=== PATIENT | female | born 1965 | race Hispanic/Latino ===

== ENCOUNTER → 2019-10-25 | Outpatient (CLI) | payer MEDICAID | END | disposition home or self-care (01) | LOC: RAH 10:24 | PROVIDERS: ATTEND Family Medicine | DX: K76.0 Fatty (change of) liver, not elsewhere classified (principal); K52.9 Noninfective gastroenteritis and colitis, unspecified; K31.89 Other diseases of stomach and duodenum | CPT/HCPCS: 76700; 78264; A9541 ==

== ENCOUNTER 2020-07-05 11:44 | Emergency (ER) | payer MEDICAID ==
[2020-07-05] MEDS ORDERED: KETOROLAC TROMETHAMINE 60 MG/2 ML VIAL ONE (12:20)
[2020-07-05] MEDS ORDERED: CYCLOBENZAPRINE HCL 10 MG TABLET ONE (12:20)
== END 2020-07-05 13:43 | disposition home or self-care (01) ==
LOC: EDH 11:44
DX: S20.211A Contusion of right front wall of thorax, initial encounter (principal); I10 Essential (primary) hypertension; E11.9 Type 2 diabetes mellitus without complications; E78.00 Pure hypercholesterolemia, unspecified; F41.9 Anxiety disorder, unspecified; F32.9 Major depressive disorder, single episode, unspecified; W08.XXXA Fall from other furniture, initial encounter; Y93.89 Activity, other specified; Y92.098 Other place in other non-institutional residence as the place of occurrence of the external cause; Y99.8 Other external cause status
CPT/HCPCS: 71101; 96372; 99283; J1885

== ENCOUNTER 2021-06-11 10:40 | Emergency (ER) | payer MEDICAID ==
[~2021-06-11] VITALS: Ht 170.2 cm; Wt 102.5 kg
[2021-06-11 10:45] VITALS: BP 123/74
[2021-06-11] MEDS ORDERED: MORPHINE 4 MG SYG IM ONE (13:00)
== END 2021-06-11 13:49 | disposition home or self-care (01) ==
LOC: EDH 10:40
DX: M53.3 Sacrococcygeal disorders, not elsewhere classified (principal); R07.89 Other chest pain; I10 Essential (primary) hypertension; E11.9 Type 2 diabetes mellitus without complications; W18.39XA Other fall on same level, initial encounter; Y93.89 Activity, other specified; Y92.89 Other specified places as the place of occurrence of the external cause; Y99.8 Other external cause status
CPT/HCPCS: 71045; 72220; 96372; 99284; J2270

== ENCOUNTER → 2021-06-18 | Outpatient (CLI) | payer MEDICAID | END | disposition home or self-care (01) | LOC: RAH 12:52 | PROVIDERS: ATTEND Internal Medicine Cardiovascular Disease | DX: I08.0 Rheumatic disorders of both mitral and aortic valves (principal); I11.9 Hypertensive heart disease without heart failure; E11.9 Type 2 diabetes mellitus without complications; E78.5 Hyperlipidemia, unspecified; E66.9 Obesity, unspecified | CPT/HCPCS: 93306 ==

== ENCOUNTER 2022-02-11 09:02 | Emergency (ER) | payer MEDICAID ==
[~2022-02-11] VITALS: Ht 162.6 cm; Wt 105.2 kg
[2022-02-11] MEDS ORDERED: IPRATROPIUM/ALBUTEROL SULFATE 3 ML SOLUTION IH ONE (09:30)
[2022-02-11] MEDS ORDERED: DEXAMETHASONE SOD PHOSPHATE 4 MG/ML 1ML VIAL IM STA (10:30)
[2022-02-11] MEDS ORDERED: FLUT16H NASAL (10:38)
[2022-02-11] MEDS ORDERED: AMOX500C2 PO (10:38)
[2022-02-11] MEDS ORDERED: LORA10TA7 PO (10:38)
[2022-02-11 11:02] VITALS: BP 124/75
== END 2022-02-11 11:00 | disposition home or self-care (01) ==
LOC: EDH 09:02
DX: J06.9 Acute upper respiratory infection, unspecified (principal); J32.9 Chronic sinusitis, unspecified; E11.9 Type 2 diabetes mellitus without complications; E78.00 Pure hypercholesterolemia, unspecified; I10 Essential (primary) hypertension; Z20.822 Contact with and (suspected) exposure to COVID-19; Z98.890 Other specified postprocedural states
CPT/HCPCS: 99284; 71045; 87635; 87804 ×2; 96372; 94640; J1100; C9803

== ENCOUNTER 2022-08-30 12:59 | Emergency (ER) | payer MEDICAID, OTHER ==
[~2022-08-30] VITALS: Ht 167.6 cm; Wt 102.5 kg
[~2022-08-30 12:59] MED LIST: ACET-66 PO; AMOX500C2 PO; FLUT16H NASAL; LORA10TA7 PO
[2022-08-30 13:50] LABS: BASOPHILS % (AUTO) 0.3 % (0.0-5.0); EOSINOPHILS % (AUTO) 1.4 % (0.0-8.0); HEMATOCRIT 40.6 % (36-48); LYMPHOCYTES % (AUTO) 27.8 % (21.0-51.0); MEAN CORPUSCULAR HEMOGLOBIN 25.3 pg (27.0-33.0); MEAN CORPUSCULAR VOLUME 81.5 fL (79-99); MONOCYTES % (AUTO) 4.8 % (3.0-13.0); NEUTROPHILS % (AUTO) 65.1 % (40.0-77.0); PLATELET COUNT (AUTO) 325 K/uL (130-400); RED BLOOD CELL COUNT(AUTO) 4.98 MIL/uL (4.00-5.50); RED CELL DISTRIBUTION WIDTH 15.4 % (11.0-15.5); WHITE BLOOD COUNT (AUTO) 11.7 K/uL (4.8-10.8)
[2022-08-30 13:56] LABS: APPEARANCE,URINE CLEAR (CLEAR); BILIRUBIN,URINE NEGATIVE (NEGATIVE); COLOR,URINE LIGHT-YELLOW (YELLOW); GLUCOSE, URINE (UA) >=1000 mg/dL (NEGATIVE); KETONES,URINE NEGATIVE (NEGATIVE); LEUKOCYTE ESTERASE ,URINE 75 Leu/uL (NEGATIVE); NITRATE,URINE NEGATIVE (NEGATIVE); OCCULT BLOOD,URINE NEGATIVE (NEGATIVE); PH,URINE 6.5 (5.0-8.0); PROTEIN,URINE NEGATIVE (NEGATIVE); UROBILINOGEN,URINE 0.2 mg/dL (0.2-1.0)
[2022-08-30 13:57] LABS: RBC,URINE 0-1 /HPF (0-1); SQUAMOUS EPITHELIAL CELL,UR RARE /HPF (0-2)
[2022-08-30 14:00] LABS: CREATININE 1.2 mg/dL (0.5-1.5); POTASSIUM 3.9 mmol/L (3.5-5.1)
[2022-08-30 14:04] LABS: ALBUMIN 3.5 g/dL (3.5-5.0); TOTAL PROTEIN, SERUM 8.5 g/dL (6.0-8.3)
[2022-08-30] MEDS ORDERED: ONDANSETRON ODT 4MG TAB SL SCH (16:00)
[2022-08-30] MEDS ORDERED: ONDA4TAB10 PO (16:00)
[2022-08-30] MEDS ORDERED: MORPHINE 4 MG SYG IM SCH (16:00)
[2022-08-30] MEDS ORDERED: NAPR-1192 PO (16:00)
[2022-08-30] MEDS ORDERED: MORPHINE 2 MG SYG ONE (16:12)
[2022-08-30 16:41] VITALS: BP 132/74
== END 2022-08-30 16:40 | disposition home or self-care (01) ==
LOC: EDH 12:59
DX: M54.9 Dorsalgia, unspecified (principal); R31.9 Hematuria, unspecified; I10 Essential (primary) hypertension; E78.00 Pure hypercholesterolemia, unspecified; Z87.442 Personal history of urinary calculi; Z79.899 Other long term (current) drug therapy; Z98.890 Other specified postprocedural states
CPT/HCPCS: 99285; 74176; 80053; 83690; 85025; 87088; 81001; 36415; 96372; J2270

== ENCOUNTER 2023-06-04 12:42 | Emergency (ER) | payer MEDICAID ==
[~2023-06-04] VITALS: Ht 162.6 cm; Wt 89.8 kg
[~2023-06-04 12:42] MED LIST changes: +NAPR-1192 PO; +ONDA4TAB10 PO
[2023-06-04 13:26] LABS: BASOPHILS # (AUTO) 0.06 K/uL (0.00-0.20); BASOPHILS % (AUTO) 0.4 % (0.0-5.0); EOSINOPHILS # (AUTO) 0.13 K/uL (0.00-0.70); EOSINOPHILS % (AUTO) 0.9 % (0.0-8.0); HEMATOCRIT 43.4 % (36-48); IMMATURE GRANULOCYTE ABSOLUTE 0.05 K/uL (0-1); LYMPHOCYTES # (AUTO) 2.7 K/uL (1.0-4.8); LYMPHOCYTES % (AUTO) 18.5 % (21.0-51.0); MEAN CORPUSCULAR HGB CONC 32.7 g/dL (32.0-36.0); MEAN CORPUSCULAR VOLUME 79.3 fL (79-99); MONOCYTES # (AUTO) 0.6 K/uL (0.1-1.0); MONOCYTES % (AUTO) 4.4 % (3.0-13.0); NEUTROPHILS # (AUTO) 10.8 K/uL (1.8-7.7); NEUTROPHILS % (AUTO) 75.5 % (40.0-77.0); PLATELET COUNT (AUTO) 299 K/uL (130-400); RED BLOOD CELL COUNT(AUTO) 5.47 MIL/uL (4.00-5.50); RED CELL DISTRIBUTION WIDTH 13.7 % (11.0-15.5); WHITE BLOOD COUNT (AUTO) 14.3 K/uL (4.8-10.8)
[2023-06-04 13:42] LABS: ALBUMIN 3.6 g/dL (3.5-5.0); BILIRUBIN,TOTAL 0.9 mg/dL (0.2-1.0); CREATININE 1.1 mg/dL (0.5-1.0); POTASSIUM 3.5 mmol/L (3.5-5.1); TOTAL PROTEIN, SERUM 8.7 g/dL (6.0-8.3)
[2023-06-04] MEDS: ONDANSETRON 4MG INJ IV ONE (14:42)
[2023-06-04 15:55] LABS: APPEARANCE,URINE CLOUDY (CLEAR); BILIRUBIN,URINE NEGATIVE (NEGATIVE); COLOR,URINE YELLOW (YELLOW); GLUCOSE, URINE (UA) 50 mg/dL (NEGATIVE); KETONES,URINE 10 mg/dL (NEGATIVE); LEUKOCYTE ESTERASE ,URINE 500 Leu/uL (NEGATIVE); NITRATE,URINE NEGATIVE (NEGATIVE); OCCULT BLOOD,URINE NEGATIVE (NEGATIVE); PH,URINE 5.5 (5.0-8.0); PROTEIN,URINE 70 mg/dL (NEGATIVE); UROBILINOGEN,URINE 0.2 mg/dL (0.2-1.0)
[2023-06-04 15:57] LABS: ADD UA MICROSCOPIC YES
[2023-06-04 16:00] LABS: MUCUS,URINE RARE LPF (None Seen); OTHER CASTS, URINE 1 /LPF (None Seen); SQUAMOUS EPITHELIAL CELL,UR MANY /HPF (0-2); UNCLASSIFIED CRYSTAL 3 /HPF (None Seen); WBC,URINE 51-100 /HPF (0-1)
[2023-06-04] MEDS ORDERED: DICY20TA2 PO (16:08)
[2023-06-04 16:11] VITALS: BP 138/76; PULSE 81; RESP 18; O2SAT 99
== END 2023-06-04 16:39 | disposition home or self-care (01) ==
LOC: EDH 12:42
DX: K31.84 Gastroparesis (principal); I10 Essential (primary) hypertension; E78.00 Pure hypercholesterolemia, unspecified; Z87.442 Personal history of urinary calculi; Z79.899 Other long term (current) drug therapy; Z98.890 Other specified postprocedural states
CPT/HCPCS: 99285; 74176; 96374; 84484; 80053; 83690; 85025; 87088; 81001; 36415; 93005; J2405

== ENCOUNTER 2023-08-05 08:29 | Inpatient (IN) | payer MEDICAID ==
[2023-08-05] VITALS (21 sets, daily range): BP systolic 105–149; BP diastolic 51–80; PULSE 65–92; RESP 7–32; O2SAT 97–99
[~2023-08-05] VITALS: Ht 162.6 cm; Wt 91.4 kg
[~2023-08-05 08:29] MED LIST changes: +DICY20TA2 PO; +METO5TAB87 PO; +NITR100C4 PO; +ONDA-243 PO; -ONDA4TAB10 PO
[2023-08-05 09:57] LABS: BASOPHILS # (AUTO) 0.03 K/uL (0.00-0.20); BASOPHILS % (AUTO) 0.2 % (0.0-5.0); HEMATOCRIT 38.1 % (36-48); IMMATURE GRANULOCYTE ABSOLUTE 0.07 K/uL (0-1); LYMPHOCYTES # (AUTO) 1.3 K/uL (1.0-4.8); LYMPHOCYTES % (AUTO) 7.5 % (21.0-51.0); MEAN CORPUSCULAR HEMOGLOBIN 26.7 pg (27.0-33.0); MEAN CORPUSCULAR HGB CONC 33.6 g/dL (32.0-36.0); MEAN CORPUSCULAR VOLUME 79.5 fL (79-99); MONOCYTES # (AUTO) 0.3 K/uL (0.1-1.0); MONOCYTES % (AUTO) 1.7 % (3.0-13.0); NEUTROPHILS # (AUTO) 15.8 K/uL (1.8-7.7); NEUTROPHILS % (AUTO) 90.2 % (40.0-77.0); PLATELET COUNT (AUTO) 281 K/uL (130-400); RED BLOOD CELL COUNT(AUTO) 4.79 MIL/uL (4.00-5.50); RED CELL DISTRIBUTION WIDTH 14.1 % (11.0-15.5); WHITE BLOOD COUNT (AUTO) 17.5 K/uL (4.8-10.8)
[2023-08-05 10:20] LABS: ALBUMIN 3.5 g/dL (3.5-5.0); BILIRUBIN,TOTAL 1.4 mg/dL (0.2-1.0); CREATININE 1.1 mg/dL (0.5-1.0); MAGNESIUM 1.4 mg/dL (1.80-2.40); TOTAL PROTEIN, SERUM 8.4 g/dL (6.0-8.3)
[2023-08-05] MEDS: 0.9%NACL 1000ML 1,000 ML IV ONE ×2 (10:50→11:37)
[2023-08-05] MEDS: INSULIN HUMULIN R 100 UNIT/ML 3ML IV ONE (11:15)
[2023-08-05] MEDS: ONDANSETRON 4MG INJ IVP ONE (11:15)
[2023-08-05] MEDS: PANTOPRAZOLE 40 MG/VIAL IVP ONE (11:36)
[2023-08-05] MEDS: MAGNESIUM 2GM PREMIX 50ML 50 ML IV ONE (11:36)
[2023-08-05 11:53] LABS: ABG OXYGEN SATURATION 96.9 % (95.0-99.0); HCO3,VENOUS BLOOD GAS 15.8 (21.0-28.0); PCO2,VENOUS BLOOD GAS 28 (32-45); PH,VENOUS BLOOD GAS 7.365 (7.350-7.450); PO2,VENOUS BLOOD GAS 91.3 mmHg (35.0-45.0); VENT MODE, BG RA (ROOM AIR)
[2023-08-05] MEDS: HYDROMORPHONE 0.5 MG SYG (0.5MG/0.5ML) IVP PRN (12:55)
[2023-08-05] MEDS ORDERED: IPRATROPIUM/ALBUTEROL SULFATE 3 ML SOLUTION IH PRN (13:00)
[2023-08-05] MEDS ORDERED: 0.9%NACL 1000ML 1,000 ML IV SCH (13:00)
[2023-08-05 13:09] LABS: INR 0.96 (0.85-1.15); PROTHROMBIN TIME 11.4 SEC (9.6-11.6)
[2023-08-05 13:10] LABS: CREATININE 1.1 mg/dL (0.5-1.0); POTASSIUM 3.6 mmol/L (3.5-5.1)
[2023-08-05 13:11] LABS: PARTIAL THROMBOPLASTIN TIME 30.8 SEC (26.3-35.5)
[2023-08-05 13:15] LABS: HEMOGLOBIN A1C 12.7 % (4.0-6.0)
[2023-08-05 13:22] LABS: PHOSPHORUS 3.1 mg/dL (2.5-4.9); THYROID STIMULATING HORMONE 1.79 uIU/mL (0.36-3.74)
[2023-08-05] MEDS: CEFTRIAXONE 1G VIAL IVPB SCH (14:06)
[2023-08-05] MEDS: POTASSIUM CHLORIDE 10MEQ/100ML 100 ML IV PRN (14:07)
[2023-08-05] MEDS: INSULIN REGULAR, HUMAN 3ML 100 UNIT in 0.9%NACL 100ML 100 ML IV SCH (15:06)
[2023-08-05 17:10] LABS: MAGNESIUM 1.8 mg/dL (1.80-2.40); POTASSIUM 3.1 mmol/L (3.5-5.1)
[2023-08-05] MEDS: D5W-1/2 NS/20MEQ KCL 1,000 ML IV SCH (18:26)
[2023-08-05] MEDS: MAGNESIUM 2GM PREMIX 50ML 50 ML IV SCH (20:50)
[2023-08-05 21:00] LABS: POTASSIUM 3.4 mmol/L (3.5-5.1)
[2023-08-05 23:14] LABS: SARS-CoV-2, RNA, NAAT NEGATIVE SARS CoV-2 (NEGATIVE)
[2023-08-05 23:18] LABS: INFLUENZA TYPE A Negative For Type A (NEGATIVE); INFLUENZA TYPE B Negative For Type B (NEGATIVE)
[2023-08-06] VITALS (14 sets, daily range): BP systolic 113–163; BP diastolic 58–102; PULSE 61–79; RESP 11–82; O2SAT 97–99
[2023-08-06 00:20] LABS: CREATININE 0.9 mg/dL (0.5-1.0); MAGNESIUM 2.3 mg/dL (1.80-2.40); POTASSIUM 3.5 mmol/L (3.5-5.1)
[2023-08-06] MEDS: LACTATED RINGERS 1000ML 1,000 ML IV SCH (01:43)
[2023-08-06] MEDS: INSULIN GLARGINE 100 UNITS/ML 10 ML VIAL SQ ONE (01:48)
[2023-08-06] MEDS: ACETAMINOPHEN 500 MG TABLET PO PRN (02:10)
[2023-08-06 05:16] LABS: BASOPHILS # (AUTO) 0.04 K/uL (0.00-0.20); BASOPHILS % (AUTO) 0.3 % (0.0-5.0); EOSINOPHILS # (AUTO) 0.39 K/uL (0.00-0.70); EOSINOPHILS % (AUTO) 3.2 % (0.0-8.0); HEMATOCRIT 34.2 % (36-48); IMMATURE GRANULOCYTE ABSOLUTE 0.06 K/uL (0-1); LYMPHOCYTES % (AUTO) 16.3 % (21.0-51.0); MEAN CORPUSCULAR HGB CONC 33.9 g/dL (32.0-36.0); MEAN CORPUSCULAR VOLUME 79.7 fL (79-99); MONOCYTES # (AUTO) 0.7 K/uL (0.1-1.0); MONOCYTES % (AUTO) 5.3 % (3.0-13.0); NEUTROPHILS # (AUTO) 9.2 K/uL (1.8-7.7); NEUTROPHILS % (AUTO) 74.4 % (40.0-77.0); PLATELET COUNT (AUTO) 236 K/uL (130-400); RED BLOOD CELL COUNT(AUTO) 4.29 MIL/uL (4.00-5.50); RED CELL DISTRIBUTION WIDTH 14.7 % (11.0-15.5); WHITE BLOOD COUNT (AUTO) 12.4 K/uL (4.8-10.8)
[2023-08-06] MEDS: KETOROLAC 15MG/ML VIAL (15MG/ML) IV PRN (05:18)
[2023-08-06] MEDS: ONDANSETRON 4MG INJ IVP PRN (05:42)
[2023-08-06 05:45] LABS: ALBUMIN 2.9 g/dL (3.5-5.0); BILIRUBIN,DIRECT 0.2 mg/dL (0.0-0.3); BILIRUBIN,TOTAL 0.8 mg/dL (0.2-1.0); CREATININE 0.9 mg/dL (0.5-1.0); MAGNESIUM 2.1 mg/dL (1.80-2.40); POTASSIUM 4.1 mmol/L (3.5-5.1)
[2023-08-06] MEDS: INSULIN GLARGINE 100 UNITS/ML 10 ML VIAL SQ SCH (06:13)
[2023-08-06] MEDS: INSULIN HUMULIN R 100 UNIT/ML 3ML SQ SCH ×2 (06:14→12:38)
[2023-08-06] MEDS: ALPRAZOLAM 1 MG TAB PO ONE (06:43)
[2023-08-06] MEDS: LORAZEPAM 2 MG/ML 1 ML VIAL ONE (07:18)
[2023-08-06] MEDS: LORAZEPAM 2 MG/ML 1 ML VIAL IVP ONE (07:19)
[2023-08-06 07:29] LABS: THYROID STIMULATING HORMONE 2.51 uIU/mL (0.36-3.74)
[2023-08-06] MEDS ORDERED: LORAZEPAM 2 MG/ML 1 ML VIAL IM ONE (07:30)
[2023-08-06] MEDS: LISINOPRIL 40 MG TABLET PO SCH (08:56)
[2023-08-06] MEDS: PANTOPRAZOLE 40 MG/VIAL IVP SCH (08:56)
[2023-08-06] MEDS: DICYCLOMINE HCL 20 MG TAB PO SCH (08:56)
[2023-08-06] MEDS: METOCLOPRAMIDE 5 MG TABLET PO SCH (08:56)
[2023-08-06] MEDS: ENOXAPARIN SODIUM 60 MG/0.6 ML SQ SCH (08:57)
[2023-08-06] MEDS ORDERED: POTASSIUM CHLORIDE 10% ELIXIR 20 MEQ/15 ML UDCUP PO PRN (10:00)
[2023-08-06] MEDS ORDERED: KCL 20 MEQ ERTAB PO PRN (10:00)
[2023-08-06] MEDS ORDERED: POTASSIUM CHLORIDE 20MEQ/100ML 100 ML IV PRN (10:00)
[2023-08-06] MEDS: HYDROXYZINE 25 MG TABLET PO PRN (20:10)
[2023-08-07] VITALS (11 sets, daily range): BP systolic 143–164; BP diastolic 73–85; PULSE 66–74; RESP 16–20; O2SAT 95–99
[2023-08-07 04:47] LABS: BASOPHILS # (AUTO) 0.05 K/uL (0.00-0.20); BASOPHILS % (AUTO) 0.4 % (0.0-5.0); EOSINOPHILS # (AUTO) 0.21 K/uL (0.00-0.70); EOSINOPHILS % (AUTO) 1.8 % (0.0-8.0); HEMATOCRIT 34.1 % (36-48); IMMATURE GRANULOCYTE ABSOLUTE 0.05 K/uL (0-1); LYMPHOCYTES # (AUTO) 2.2 K/uL (1.0-4.8); LYMPHOCYTES % (AUTO) 18.4 % (21.0-51.0); MEAN CORPUSCULAR HEMOGLOBIN 26.6 pg (27.0-33.0); MEAN CORPUSCULAR HGB CONC 33.4 g/dL (32.0-36.0); MEAN CORPUSCULAR VOLUME 79.7 fL (79-99); MONOCYTES # (AUTO) 0.7 K/uL (0.1-1.0); MONOCYTES % (AUTO) 5.6 % (3.0-13.0); NEUTROPHILS # (AUTO) 8.6 K/uL (1.8-7.7); NEUTROPHILS % (AUTO) 73.4 % (40.0-77.0); PLATELET COUNT (AUTO) 246 K/uL (130-400); RED BLOOD CELL COUNT(AUTO) 4.28 MIL/uL (4.00-5.50); RED CELL DISTRIBUTION WIDTH 14.3 % (11.0-15.5); WHITE BLOOD COUNT (AUTO) 11.7 K/uL (4.8-10.8)
[2023-08-07 05:07] LABS: CREATININE 0.8 mg/dL (0.5-1.0); MAGNESIUM 1.5 mg/dL (1.80-2.40); PHOSPHORUS 2.3 mg/dL (2.5-4.9); POTASSIUM 3.3 mmol/L (3.5-5.1)
[2023-08-07] MEDS: LEVOTHYROXINE 25 MCG TABLET PO SCH (06:40)
[2023-08-07] MEDS: DiphenhydrAMINE HCL 50 MG/ML VIAL IV ONE (10:10)
[2023-08-07] MEDS: HYDROXYZINE 25 MG TABLET PO SCH (13:12)
[2023-08-08 00:43] VITALS: BP 124/66; PULSE 62; RESP 18
[2023-08-08] MEDS: POTASSIUM CHLORIDE 20MEQ/100ML 100 ML IV PRN (02:25)
[2023-08-08] MEDS: DiphenhydrAMINE HCL 50 MG/ML VIAL IV PRN (02:32)
[2023-08-08 04:33] VITALS: BP 111/57; PULSE 57; RESP 18
[2023-08-08 06:13] LABS: BASOPHILS # (AUTO) 0.05 K/uL (0.00-0.20); BASOPHILS % (AUTO) 0.5 % (0.0-5.0); EOSINOPHILS # (AUTO) 0.41 K/uL (0.00-0.70); EOSINOPHILS % (AUTO) 3.7 % (0.0-8.0); HEMATOCRIT 34.7 % (36-48); IMMATURE GRANULOCYTE ABSOLUTE 0.04 K/uL (0-1); LYMPHOCYTES # (AUTO) 3.4 K/uL (1.0-4.8); LYMPHOCYTES % (AUTO) 30.4 % (21.0-51.0); MEAN CORPUSCULAR HEMOGLOBIN 27.1 pg (27.0-33.0); MEAN CORPUSCULAR HGB CONC 32.9 g/dL (32.0-36.0); MEAN CORPUSCULAR VOLUME 82.4 fL (79-99); MONOCYTES # (AUTO) 0.7 K/uL (0.1-1.0); MONOCYTES % (AUTO) 6.1 % (3.0-13.0); NEUTROPHILS # (AUTO) 6.5 K/uL (1.8-7.7); NEUTROPHILS % (AUTO) 58.9 % (40.0-77.0); PLATELET COUNT (AUTO) 225 K/uL (130-400); RED BLOOD CELL COUNT(AUTO) 4.21 MIL/uL (4.00-5.50); RED CELL DISTRIBUTION WIDTH 14.6 % (11.0-15.5); WHITE BLOOD COUNT (AUTO) 11.1 K/uL (4.8-10.8)
[2023-08-08 06:45] LABS: CREATININE 0.7 mg/dL (0.5-1.0)
[2023-08-08 08:00] VITALS: BP 119/66; PULSE 65; RESP 16; O2SAT 98
[2023-08-08] MEDS: MAGNESIUM OXIDE 400 MG TABLET PO SCH (08:13)
[2023-08-08 08:57] LABS: APPEARANCE,URINE CLEAR (CLEAR); BILIRUBIN,URINE NEGATIVE (NEGATIVE); COLOR,URINE LIGHT-YELLOW (YELLOW); GLUCOSE, URINE (UA) NEGATIVE (NEGATIVE); KETONES,URINE 10 mg/dL (NEGATIVE); LEUKOCYTE ESTERASE ,URINE 75 Leu/uL (NEGATIVE); NITRATE,URINE NEGATIVE (NEGATIVE); OCCULT BLOOD,URINE NEGATIVE (NEGATIVE); PH,URINE 6.5 (5.0-8.0); PROTEIN,URINE NEGATIVE (NEGATIVE); UROBILINOGEN,URINE 0.2 mg/dL (0.2-1.0)
[2023-08-08 08:59] LABS: ADD UA MICROSCOPIC YES
[2023-08-08 09:08] LABS: BACTERIA,URINE RARE /HPF (None Seen); MUCUS,URINE RARE LPF (None Seen); RBC,URINE 0-1 /HPF (0-1); SQUAMOUS EPITHELIAL CELL,UR RARE /HPF (0-2)
[2023-08-08] MEDS ORDERED: HYDR-3421 PO (11:33)
[2023-08-08] MEDS ORDERED: LISI40TA9 PO (11:33)
[2023-08-08] MEDS ORDERED: MAGN400T7 PO (11:33)
[2023-08-08 12:00] VITALS: BP 153/73; PULSE 74; RESP 20
== END 2023-08-08 14:30 | disposition home or self-care (01) | DRG 420 ==
LOC: EDH 08:29 → EDHIP 08:30 → 2BH 14:55 → 3CH 08-07 06:01
PROVIDERS: ADMIT Internal Medicine; ATTEND Internal Medicine
PROC: 05HY33Z Insertion of Infusion Device into Upper Vein, Percutaneous Approach (ICD-10-PCS; principal; 2023-08-05)
PROC: B543ZZA Ultrasonography of Right Jugular Veins, Guidance (ICD-10-PCS; 2023-08-05)
DX: E11.10 Type 2 diabetes mellitus with ketoacidosis without coma (principal); N17.9 Acute kidney failure, unspecified; G25.71 Drug induced akathisia; E03.9 Hypothyroidism, unspecified; Z20.822 Contact with and (suspected) exposure to COVID-19; E78.5 Hyperlipidemia, unspecified; F41.9 Anxiety disorder, unspecified; E11.43 Type 2 diabetes mellitus with diabetic autonomic (poly)neuropathy; K31.84 Gastroparesis; E86.0 Dehydration; E83.42 Hypomagnesemia; I10 Essential (primary) hypertension; M17.0 Bilateral primary osteoarthritis of knee; E11.40 Type 2 diabetes mellitus with diabetic neuropathy, unspecified; E66.9 Obesity, unspecified; R29.6 Repeated falls; Z68.37 Body mass index [BMI] 37.0-37.9, adult; Z79.84 Long term (current) use of oral hypoglycemic drugs; Z87.442 Personal history of urinary calculi; Z87.440 Personal history of urinary (tract) infections; Z79.891 Long term (current) use of opiate analgesic; Z79.899 Other long term (current) drug therapy; Z90.49 Acquired absence of other specified parts of digestive tract; Z91.119 Patient's noncompliance with dietary regimen due to unspecified reason; Z68.34 Body mass index [BMI] 34.0-34.9, adult
CPT/HCPCS: 36415; 36600; 71045; 74176; 80048; 80053; 80061; 80076; 81001; 82010; 82803; 82948; 83036; 83605; 83690; 83735; 84100; 84145; 84439; 84443; 84481; 84484; 85025; 85610; 85651; 85730; 86140; 87040; 87077; 87088; 87186; 87635; 87804; 93005; 94664; 96365; 96375; C9113; G0378; J0696; J1170; J1200; J1650; J1815; J1885; J2060; J2405; J3475; J3480; J7030

== ENCOUNTER → 2023-11-22 | Outpatient (CLI) | payer MEDICAID ==
[~2023-11-22] MED LIST changes: -AMOX500C2 PO; +HYDR-3421 PO; +LISI40TA9 PO; +MAGN400T7 PO; -METO5TAB87 PO; -NAPR-1192 PO; -NITR100C4 PO
[2023-11-22 10:09] LABS: ALBUMIN 3.4 g/dL (3.5-5.0); BILIRUBIN,TOTAL 0.8 mg/dL (0.2-1.0); CREATININE 1.2 mg/dL (0.5-1.0); POTASSIUM 4.2 mmol/L (3.5-5.1); TOTAL PROTEIN, SERUM 8.1 g/dL (6.0-8.3)
== END | disposition home or self-care (01) ==
LOC: LAB 09:09
PROVIDERS: ATTEND Internal Medicine Cardiovascular Disease
DX: R94.31 Abnormal electrocardiogram [ECG] [EKG] (principal); R07.9 Chest pain, unspecified
CPT/HCPCS: 36415; 80053

== ENCOUNTER 2024-06-25 10:30 | Emergency (ER) | payer MEDICAID ==
[~2024-06-25] VITALS: Ht 165.1 cm; Wt 106.6 kg
--- NOTE | 2024-06-25 11:35 | ERN ---
ED Note History of Present Illness Stated Complaint: CHEST PAIN Chief Complaint: Chest Pain Time Seen by MD: 10:33 Time Seen by Midlevel: 10:38 Dictation: 58-year-old female with a history of hypertension, diabetes and cholesterol coming in with complaints of chest pain, nausea and diarrhea for two days. Patient also states her blood sugar this morning was at 598. Patient states she has not been taking her Tresiba for the last seven days due to not have an insurance. Denies having any emesis episode. Denies any fever, cough congestion headache. Allergies: Coded Allergies: No Known Allergies (Unverified Allergy, Unknown, 07/05/20) Home Meds Active Scripts Magnesium Oxide (Mag-Ox) 400 Mg Tab, 400 MG PO DAILY, #5 TAB Prov:TIM DAVENPORT MD 08/08/23 Lisinopril (Lisinopril) 40 Mg Tablet, 40 MG PO DAILY, #30 TAB 0 Refills Prov:TIM DAVENPORT MD 08/08/23 Hydroxyzine HCl (Hydroxyzine HCl) 25 Mg Tablet, 25 MG PO TID, #90 TAB Prov:TIM DAVENPORT MD 08/08/23 Ondansetron (Ondansetron Odt) 4 Mg Tab.rapdis, 4 MG PO Q6HPRN PRN for nausea, #16 TAB 0 Refills Prov:PABLO MICHAEL MD 06/04/23 Dicyclomine HCl (Bentyl) 20 Mg Tab, 20 MG PO QID for abdominal pain, #30 TAB 0 Refills Prov:PABLO MICHAEL MD 06/04/23 Acetaminophen (Tylenol) 500 Mg Tab, 500 MG PO Q4PRN PRN for PAIN, #15 TAB Prov:NOHEMI VALDEZ 06/17/22 Loratadine (Loratadine) 10 Mg Tablet, 10 MG PO DAILY for 30 Days, #30 TAB Prov:DAV BALDERAS MD 02/11/22 Fluticasone Propionate (Flonase Nasal [place]) 50 Mcg/[place], 50 MCG NASAL BID for 14 Days, #30 SPRAY Prov:DAV BALDERAS MD 02/11/22 Past Medical History Past Medical History: Diabetes-Type II, Hypertension, Renal Disese Additional Past Medical Hx: BRONCHITIS Surgical History: Other Surgical History Other: KIDNEY STONE REMOVAL AND STENT PLACEMENT Family History: Negative Social History: Negative, Lives with family History: Not Applicable Review of System Dictation Constitutional: Negative for fever,chills, and weight loss Eyes: Negative for injury, pain,redness, and discharge ENT: Negative for injury,pain or swelling Cardiovascular: Complaining of chest pain, no palpitations, and no edema Respiratory: Negative for shortness of breath, cough, and wheezing, Abdomen/GI: Negative for abdominal pain, nausea, vomiting, positive for diarrhea , nonbloody Back: Negative for injury and pain : Negative for injury, bleeding and discharge MS/Extremity: Negative for injury and deformity Skin: Negative for rash, and discoloration Neuro: Negative for headache, weakness, numbness, tingling, and seizure Psych: Negative for suicide ideation, homicidal ideation, and hallucinations Review of Systems: was completed Initial Vital Sign VS Vital Signs Date Time Temp Pulse Resp B/P (MAP) Pulse Ox O2 Delivery O2 Flow Rate FiO2 06/25/24 10:32 98.1 89 16 178/77 99 Room Air Physical Exam Dictation General: awake, alert, NAD Head/Face: Normocephalic, atraumatic Eyes: PERRL, EOMI, vision at baseline ENT: oral cavity clear, TMs clear, no signs of infection Neck: Trachea midline, supple, no nuchal rigidity Cardiovascular: RRR, normal S1/S2, No MRGs, no JVD Respiratory: CTAB, no respiratory distress, No rales or wheezes Abdomen: Soft, non-tender, non-distended, normal bowel sounds, no guarding or rebound. Skin: Warm, dry, normal turgor, no rash MS/Extremity: Pulses equal, no cyanosis, neurovascular intact, FROM Neuro: COAx4, GCS 15, strength 5/5, CN 2-12 intact, normal cerebellar exam, normal gait, Psych: Normal behavior, mood, and affect normal Results (Laboratory/Radiology) Laboratory/Radiology Laboratory Tests Test 06/25/24 11:30 06/25/24 13:25 06/25/24 13:43 06/25/24 14:27 White Blood Count 13.3 K/uL (4.8-10.8) H Red Blood Count 4.63 MIL/uL (4.00-5.50) Hemoglobin 12.6 g/dL (12.0-16.0) Hematocrit 37.1 % (36-48) Mean Corpuscular Volume 80.1 fL (79-99) Mean Corpuscular Hemoglobin 27.2 pg (27.0-33.0) Mean Corpuscular Hemoglobin Concent 34.0 g/dL (32.0-36.0) Red Cell Distribution Width 12.7 % (11.0-15.5) Platelet Count 269 K/uL (130-400) Mean Platelet Volume 10.6 fL (7.5-10.5) H Immature Granulocyte % (Auto) 0.4 % (0-1) Neutrophils (%) (Auto) 83.3 % (40.0-77.0) H Lymphocytes (%) (Auto) 12.0 % (21.0-51.0) L Monocytes (%) (Auto) 3.8 % (3.0-13.0) Eosinophils (%) (Auto) 0.3 % (0.0-8.0) Basophils (%) (Auto) 0.2 % (0.0-5.0) Neutrophils # (Auto) 11.1 K/uL (1.8-7.7) H Lymphocytes # (Auto) 1.6 K/uL (1.0-4.8) Monocytes # (Auto) 0.5 K/uL (0.1-1.0) Eosinophils # (Auto) 0.04 K/uL (0.00-0.70) Basophils # (Auto) 0.03 K/uL (0.00-0.20) Absolute Immature Granulocyte (auto 0.05 K/uL (0-1) Nucleated Red Blood Cells 0.0 % (0.0-0.19) Sodium Level 126 mmol/L (136-145) L Potassium Level 4.4 mmol/L (3.5-5.1) Chloride Level 94 mmol/L (101-111) L Carbon Dioxide Level 26 mmol/L (21-32) Blood Urea Nitrogen 19 mg/dL (7-18) H Creatinine 1.3 mg/dL (0.5-1.0) H Glomerular Filtration Rate Calc 47 mL/min (>90) Random Glucose 574 mg/dL (70-105) *H Total Calcium 9.2 mg/dL (8.5-10.1) Total Bilirubin 0.8 mg/dL (0.2-1.0) Direct Bilirubin 0.1 mg/dL (0.0-0.3) Aspartate Amino Transf (AST/SGOT) 18 U/L (10-37) Alanine Aminotransferase (ALT/SGPT) 15 U/L (12-78) Alkaline Phosphatase 178 U/L (50-136) H Troponin I High Sensitivity 23 ng/L (4-50) 29 ng/L (4-50) B-Type Natriuretic Peptide 45 pg/mL (0-100) Total Protein 8.3 g/dL (6.0-8.3) Albumin 3.6 g/dL (3.5-5.0) Lipase 36 U/L (16-77) Urine Color COLORLESS (YELLOW) Urine Appearance CLEAR (CLEAR) Urine pH 5.5 (5.0-8.0) Urine Specific [place] 1.027 (1.001-1.031) Urine Protein NEGATIVE mg/dL (NEGATIVE) Urine Glucose (UA) >=1000 mg/dL (NEGATIVE) H Urine Ketones NEGATIVE mg/dL (NEGATIVE) Urine Occult Blood NEGATIVE (NEGATIVE) Urine Nitrate NEGATIVE (NEGATIVE) Urine Bilirubin NEGATIVE mg/dL (NEGATIVE) Urine Urobilinogen 0.2 mg/dL (0.2-1.0) Urine Leukocyte Esterase NEGATIVE [place]/uL Urine RBC 0-1 /HPF (0-1) Urine WBC 2-5 /HPF (0-1) H Urine Squamous Epithelial Cells RARE /HPF (0-2) Urine Bacteria None /HPF (None Seen) Blood Gas Specimen Type Arterial Arterial Blood pH 7.373 (7.350-7.450) Arterial Blood Partial Pressure CO2 38 mmHg (32-45) Arterial Blood Partial Pressure O2 86.1 mmHg (83.0-108.0) Arterial Blood HCO3 21.9 mmol/L (21.0-28.0) Arterial Blood Oxygen Saturation 96.3 % (94.0-98.0) Arterial Blood Base Excess -3.0 mmol/L (-2.0-3.0) L Blood Gas Temperature 37.0 CELSIUS (35.5-37.0) Blood Gas Vent Mode RA (ROOM AIR) FiO2 21.0 % Blood Gas Specimen Comment RRJUAN Test 06/25/24 14:36 Whole Blood Glucose 261 MG/DL (70-110) H Labs Reviewed?: Yes EKG Comment: EKGs done at 11:16 a.m., sinus rhythm at 80, anterior infarct, old. No STEMI interpreted by ER MD ED Course ED Course Orders Procedure Category Date Status Time Cbc With Differential LAB 06/25/24 Complete 10:39 Basic Metabolic Panel LAB 06/25/24 Complete 10:39 Troponin I High LAB 06/25/24 Complete Sensitivity 10:39 12 Lead Ekg Tracing- EKG 06/25/24 Logged Technical 10:39 Chest 1vw RAD 06/25/24 Resulted 10:39 Lipase LAB 06/25/24 Complete 10:39 B-Type Natriuretic LAB 06/25/24 Complete Peptide 10:39 Hepatic Function Panel LAB 06/25/24 Complete 10:45 0.9%Nacl 1000ml (Ns PHA 06/25/24 Complete 1000ml) 10:45 Ondansetron 4mg Inj PHA 06/25/24 Complete (Zofran 4mg Inj) 10:45 Aspirin 325mg Tab PHA 06/25/24 Complete (Aspirin 325mg Tab) 11:30 Arterial Blood Gas RT 06/25/24 Transmitted 12:25 Insulin Regular, PHA 06/25/24 Complete Human 3ml (Humulin R 12:26 Morphine 2mg Syg PHA 06/25/24 Complete (Morphine 2mg Syg) 13:09 Bedside Glucose CPOE 06/25/24 Transmitted Fingerstick 13:25 Arterial Blood Gas LAB 06/25/24 Complete 13:43 Troponin I High LAB 06/25/24 Complete Sensitivity 14:00 Urinalysis Profile LAB 06/25/24 Complete 14:01 Current Medications Medications (Trade) Dose Ordered Sig/[place] Route PRN Reason Start Time Stop Time Status Last Admin Dose Admin Aspirin (Aspirin 325mg Tab) 325 mg ONCE ONCE PO 06/25/24 11:30 06/25/24 11:31 DC 06/25/24 11:54 Insulin Human Regular (humuLIN R 100 UNIT/ML 3ML) 7 unit ONCE STAT IV 06/25/24 12:26 06/25/24 12:27 DC 06/25/24 13:06 Morphine Sulfate (morPHINE 2MG SYG) 2 mg ONCE STAT IVP 06/25/24 13:09 06/25/24 13:10 DC 06/25/24 13:30 Ondansetron HCl (zoFRAN 4MG INJ) 4 mg ONCE STAT IVP 06/25/24 10:45 06/25/24 10:53 DC 06/25/24 11:54 Sodium Chloride 1,000 ml @ 1,000 mls/hr Q1H STAT IV 06/25/24 10:45 06/25/24 11:44 DC 06/25/24 11:54 Vital Signs Date Time Temp Pulse Resp B/P (MAP) Pulse Ox O2 Delivery O2 Flow Rate FiO2 06/25/24 10:32 98.1 89 16 178/77 99 Room Air HEART Score Response (Comments) Value History: Low suspicion (0) 0 EKG: Normal 0 Age: 45-65yrs (+1) 1 Risk Factors: 1-2 risk factors (+1) 1 Initial Troponin: Normal limit (0) 0 Total 2 Medical Decision Making MDM MDM: 58-year-old female with a history of hypertension, diabetes and cholesterol coming in with complaints of chest pain, nausea and diarrhea for two days. Patient also states her blood sugar this morning was at 598. Patient states she has not been taking her Tresiba for the last seven days due to not have an insurance. Denies having any emesis episode. Denies any fever, cough congestion headache.CBC shows mild hyperglycemia, no anemia, no thrombocytopenia. Chemistry shows corrected sodium of 134, mild elevation of BUN creatinine however patient has a history of this in the past. Hyperglycemia at 574. No transaminitis. Lipase within normal range. Troponin x2 negative. Heart score is two. We will risk. EKGs did not show any ST elevations or dysrhythmias.. ABGs show a pH of 7.3, pCO2 of 38 and a bicarb of 21. No DKA. Urine shows no urinary tract infection, no ketones. After fluids, five of insulin, and pain medication patient states she feels better, and her blood sugars no 261. Discussed findings with the patient. Educated patient she needs to follow up with PCP to get a hold of her home medications. Educated on signs and symptoms of when to return back to the emergency room. Patient verbalized understanding, answered all questions. Differential diagnosis: ACS, HHS, DKA Rationale: Tests considered and ordered secondary to shared decision making include: Previous outside records reviewed: Old ER visits. Risk of complication and/or morbidity or mortality of patient management: None Medications-Per medication reconciliation Need for hospitalization: Patient does not meet criteria for hospitalization. Need for emergency major/minor surgery: No There are no social concerns with this patient. Prescription drug management Prescriptions will include symptomatic care Patient's prior external medical records from other ER visits were reviewed by me as indicated. Prior testing and results from previous visits were reviewed. Prior tests were taken into account with medical decision making and resource utilization, independent historian/historians were used to obtain complete medical history. I independently interpreted the test that were performed, results were reviewed by me and considered findings on radiology if ordered. Medical management and examination interpretation discussions were had by me with other qualified healthcare professionals as indicated for the patient's care. DX & DISP Disposition: Discharge Departure Impression: Primary Impression: Uncontrolled diabetes mellitus with hyperglycemia Condition: Stable Additional Instructions: Please follow up with your PCP to get your diabetic medication. Return to the hospital if worsening symptoms. Referrals: REJI RILEY (PCP) Time of Disposition: 15:01 I have reviewed the case, and I agree with, Diagnosis and Plan MARKUS DUNN NP June 25, 2024 11:35
[2024-06-25 11:38] LABS: BASOPHILS # (AUTO) 0.03 K/uL (0.00-0.20); BASOPHILS % (AUTO) 0.2 % (0.0-5.0); EOSINOPHILS # (AUTO) 0.04 K/uL (0.00-0.70); EOSINOPHILS % (AUTO) 0.3 % (0.0-8.0); HEMATOCRIT 37.1 % (36-48); IMMATURE GRANULOCYTE ABSOLUTE 0.05 K/uL (0-1); LYMPHOCYTES # (AUTO) 1.6 K/uL (1.0-4.8); MEAN CORPUSCULAR HEMOGLOBIN 27.2 pg (27.0-33.0); MEAN CORPUSCULAR VOLUME 80.1 fL (79-99); MONOCYTES # (AUTO) 0.5 K/uL (0.1-1.0); MONOCYTES % (AUTO) 3.8 % (3.0-13.0); NEUTROPHILS # (AUTO) 11.1 K/uL (1.8-7.7); NEUTROPHILS % (AUTO) 83.3 % (40.0-77.0); PLATELET COUNT (AUTO) 269 K/uL (130-400); RED BLOOD CELL COUNT(AUTO) 4.63 MIL/uL (4.00-5.50); RED CELL DISTRIBUTION WIDTH 12.7 % (11.0-15.5); WHITE BLOOD COUNT (AUTO) 13.3 K/uL (4.8-10.8)
--- NOTE | 2024-06-25 11:53 | HMCIMG ---
CHEST 1VW HISTORY: Chest pain COMPARISON: 08/05/2023 FINDINGS: A frontal projection of the chest was obtained. No acute pulmonary infiltrates is seen. The heart is normal in size. Prominent interstitial markings are seen. No evidence of aortic calcification is seen. IMPRESSION: 1. No acute pulmonary infiltrate is seen.
[2024-06-25 11:54] LABS: ALBUMIN 3.6 g/dL (3.5-5.0); BILIRUBIN,DIRECT 0.1 mg/dL (0.0-0.3); BILIRUBIN,TOTAL 0.8 mg/dL (0.2-1.0); TOTAL PROTEIN, SERUM 8.3 g/dL (6.0-8.3)
[2024-06-25] MEDS: 0.9%NACL 1000ML 1,000 ML IV STA (11:54)
[2024-06-25] MEDS: ASPIRIN 325MG TAB PO ONE (11:54)
[2024-06-25] MEDS: ondanSETRON 4MG INJ IVP STA (11:54)
[2024-06-25 11:58] LABS: CREATININE 1.3 mg/dL (0.5-1.0); POTASSIUM 4.4 mmol/L (3.5-5.1)
[2024-06-25 11:59] LABS: B-TYPE NATRIURETIC PEPTIDE 45 pg/mL (0-100)
[2024-06-25] MEDS: INSULIN humuLIN R 100 UNIT/ML 3ML IV STA (13:06)
[2024-06-25] MEDS: morPHINE 2 MG SYG IVP STA (13:30)
[2024-06-25 13:45] LABS: ABG HCO3 21.9 mmol/L (21.0-28.0); ABG OXYGEN SATURATION 96.3 % (94.0-98.0); ABG PCO2 38 mmHg (32-45); ABG PH 7.373 (7.350-7.450); PO2, ARTERIAL BG 86.1 mmHg (83.0-108.0); VENT MODE, BG RA (ROOM AIR)
[2024-06-25 14:20] LABS: APPEARANCE,URINE CLEAR (CLEAR); BILIRUBIN,URINE NEGATIVE (NEGATIVE); COLOR,URINE COLORLESS (YELLOW); GLUCOSE, URINE (UA) >=1000 mg/dL (NEGATIVE); KETONES,URINE NEGATIVE (NEGATIVE); LEUKOCYTE ESTERASE ,URINE NEGATIVE Leu/uL (NEGATIVE); NITRATE,URINE NEGATIVE (NEGATIVE); OCCULT BLOOD,URINE NEGATIVE (NEGATIVE); PH,URINE 5.5 (5.0-8.0); PROTEIN,URINE NEGATIVE (NEGATIVE); UROBILINOGEN,URINE 0.2 mg/dL (0.2-1.0)
[2024-06-25 14:25] LABS: ADD UA MICROSCOPIC YES
[2024-06-25 14:26] LABS: RBC,URINE 0-1 /HPF (0-1); SQUAMOUS EPITHELIAL CELL,UR RARE /HPF (0-2)
[2024-06-25 14:58] VITALS: BP 142/54; PULSE 64; RESP 18; TEMP 98.4; O2SAT 97
--- NOTE | 2024-06-26 08:04 | EKG ---
[facility] Test Date: 2024-06-25 Test Time: 11:07:23 Pat Name: CARMEN BETANCOURT Department: ED Room: Gender: F Edge Stainer: [birth year] : 1965 Requested By: MARKUS DUNN Order Number: [id number] Reading MD: Cullen Caceres Measurements Intervals [place] Rate: 70 P: 22 VA: 136 QRS: -7 QRSD: 95 T: 77 QT: 418 QTc: 452 Interpretive Statements Sinus rhythm Compared to ECG 08/05/2023 10:02:34 No significant changes Electronically Signed On 06-26-2024 12:50:17 CDT by Cullen Caceres Please click the below link to view image of tracing.
== END 2024-06-25 15:45 | disposition home or self-care (01) ==
LOC: EDH 10:30
DX: E11.65 Type 2 diabetes mellitus with hyperglycemia (principal); I10 Essential (primary) hypertension; Z79.899 Other long term (current) drug therapy
CPT/HCPCS: 99284; 96374; 96375; 71045; 96361; 80076; 84484 ×2; 80048; 82803; 83880; 83690; 85025; 82948; 81001; 36415; 93005; 36600; J1815; J2270; J7030; J2405

== ENCOUNTER → 2024-07-18 | Outpatient (CLI) | payer MEDICAID ==
--- NOTE | 2024-07-19 09:42 | HMCIMG ---
MAMMO SCREENING BILATERAL HISTORY: Screening mammogram. COMPARISON: None TECHNIQUE: Bilateral screening mammogram with CAD was performed with craniocaudal and mediolateral oblique projections. FINDINGS: There are scattered areas of fibroglandular density. There is no evidence of a dominant mass, or suspicious microcalcification. There is no evidence of nipple retraction or skin thickening. IMPRESSION: 1. No dominant mass is seen to suggest a malignant process. Patient was entered into a reminder system with a target due date for their next mammogram. BI-RADS: CATEGORY 2: BENIGN FINDINGS Recommend monthly self breast exam as well as annual clinical examination. A negative x-ray should not delay biopsy if a dominant or clinically suspicious mass is present, since 8-10% of cancers are not identified by mammography. Dense breasts particularly, may obscure an underlying neoplasm. Some of these may be detected clinically and therefore, clinical examination is an essential part of breast evaluation.
== END | disposition home or self-care (01) ==
LOC: RAH 10:03
PROVIDERS: ATTEND Family Medicine
DX: Z12.31 Encounter for screening mammogram for malignant neoplasm of breast (principal); R92.323 Mammographic fibroglandular density, bilateral breasts
CPT/HCPCS: 77067

== ENCOUNTER 2024-11-08 11:31 | Emergency (ER) | payer MEDICAID ==
[~2024-11-08] VITALS: Ht 165.1 cm; Wt 101.2 kg
[~2024-11-08 11:31] MED LIST changes: +LISI40TA15 PO; -LISI40TA9 PO
--- NOTE | 2024-11-08 11:39 | ERN ---
ED Note History of Present Illness Stated Complaint: ABD PAIN Chief Complaint: Abdominal Pain Time Seen by MD: 11:35 Dictation: PATIENT IS A 59-YEAR-OLD FEMALE COMING IN TODAY WITH EPIGASTRIC AND LEFT UPPER QUADRANT PAIN THAT OCCASIONALLY RADIATES TO THE BACK ONSET HAS BEEN TWO WEEKS. NO FEVER NO CHILLS NO NAUSEA VOMITING. NO CHEST PAIN NO BACK PAIN. STATES SHE FINALLY WENT TO HER DOCTOR YESTERDAY HOWEVER THEY COULD NOT DRAW ANY LABS SO THEY TOLD HER TODAY TO COME TO THE EMERGENCY ROOM. Allergies: Coded Allergies: No Known Allergies (Unverified Allergy, Unknown, 07/05/20) Home Meds Active Scripts Magnesium Oxide (Mag-Ox) 400 Mg Tab, 400 MG PO DAILY, #5 TAB Prov:TIM DAVENPORT MD 08/08/23 Lisinopril (Lisinopril) 40 Mg Tablet, 40 MG PO DAILY, #30 TAB 0 Refills Prov:TIM DAVENPORT MD 08/08/23 Hydroxyzine HCl (Hydroxyzine HCl) 25 Mg Tablet, 25 MG PO TID, #90 TAB Prov:TIM DAVENPORT MD 08/08/23 Ondansetron (Ondansetron Odt) 4 Mg Tab.rapdis, 4 MG PO Q6HPRN PRN for nausea, #16 TAB 0 Refills Prov:PABLO MICHAEL MD 06/04/23 Dicyclomine HCl (Bentyl) 20 Mg Tab, 20 MG PO QID for abdominal pain, #30 TAB 0 Refills Prov:PABLO MICHAEL MD 06/04/23 Acetaminophen (Tylenol) 500 Mg Tab, 500 MG PO Q4PRN PRN for PAIN, #15 TAB Prov:NOHEMI VALDEZ 06/17/22 Loratadine (Loratadine) 10 Mg Tablet, 10 MG PO DAILY for 30 Days, #30 TAB Prov:DAV BALDERAS MD 02/11/22 Fluticasone Propionate (Flonase Nasal [place]) 50 Mcg/[place], 50 MCG NASAL BID for 14 Days, #30 SPRAY Prov:DAV BALDERAS MD 02/11/22 Past Medical History Past Medical History: Diabetes-Type II, Hypertension, Renal Disese Additional Past Medical Hx: BRONCHITIS Surgical History: Other Surgical History Other: KIDNEY STONE REMOVAL AND STENT PLACEMENT Family History: Negative Social History: Negative, Lives with family History: Not Applicable RN Note Reviewed/Agreed w/PFSH: Yes Review of System Dictation CONSTITUTIONAL: NEGATIVE EXCEPT FOR HPI HEAD/FACE: NEGATIVE EXCEPT FOR HPI EENT: NEGATIVE EXCEPT FOR HPI RESPIRATORY: NEGATIVE EXCEPT FOR HPI GASTROINTESTINAL/ABDOMINAL: NEGATIVE EXCEPT FOR HPI EPIGASTRIC AND LEFT UPPER QUADRANT PAIN GENITOURINARY: NEGATIVE EXCEPT FOR HPI MUSCULOSKELETAL: NEGATIVE EXCEPT FOR HPI INTEGUMENTARY: NEGATIVE EXCEPT FOR HPI NEUROLOGICAL/PSYCH: NEGATIVE EXCEPT FOR HPI HEMATOLOGIC/LYMPHATIC: NEGATIVE EXCEPT FOR HPI ALL SYSTEMS NEGATIVE, EXCEPT NOTED ABOVE. 13 POINT REVIEW OF SYSTEMS ASSESSED AND ALL NEGATIVE EXCEPT FOR ABOVE. Initial Vital Sign VS Vital Signs Date Time Temp Pulse Resp B/P (MAP) Pulse Ox O2 Delivery O2 Flow Rate FiO2 11/08/24 11:35 97.9 84 18 153/88 96 Room Air 0 11/08/24 15:56 21 Physical Exam Dictation VITAL SIGNS REVIEWED GENERAL APPEARANCE: ALERT, ORIENTED X 3, MODERATE ACUTE DISTRESS, WELL DEVELOPED, NOURISHED. OBESE HEAD AND FACE: NON-TRAUMATIC. EYES: PERRL, PINK CONJUNCTIVAS, EYELID NO TRAUMA, ANTERIOR CHAMBER WITH ARCUS SENILIS. EARS: PINNAS INTACT AND NO SIGNS OF TRAUMA OR ERYTHEMA EAR CANALS CLEAR AND NO DISCHARGE TM NO ERYTHEMA NOSE: NO DISCHARGE, NO BLEEDING. OROPHARYNX: MOUTH NORMAL, TONGUE PINK, PHARYNX CLEAR,NO ERYTHEMA, TONSILS NO EXUDATES, NO ABSCESSES NOTED, MUCOUS MEMBRANE MOIST NECK: SUPPLE, NON-TENDER, NO THYROMEGALY, NO MASSES, NO JVD, NO BRUITS BREAST:DEFERRED CHEST:NO TENDERNESS, NO CREPITUS, NO PARADOXICAL MOVEMENT, NO RETRACTIONS LUNGS:CLEAR, WELL-VENTILATED, SYMMETRIC, NO RALES, NO WHEEZING, NO RHONCHI, NO STRIDOR, GOOD BREATH SOUNDS BILATERALLY HEART: REGULAR RATE, REGULAR RHYTHM, NO MURMUR, NO GALLOPS VASCULAR: NO PERIPHERAL EDEMA, ABDOMEN: SOFT, POSITIVE BOWEL SOUNDS, NONDISTENDED, NO GUARDING, EPIGASTRIC AND LEFT UPPER QUADRANT TENDERNESS WITH PALPATION. RECTAL: DEFERRED GENITAL: DEFERRED NEUROLOGICAL: NORMAL SPEECH, MOTOR FUNCTION INTACT, SENSORY FUNCTION INTACT MUSCULOSKELETAL: NECK NONTENDER, FULL RANGE OF MOTION, BACK NONTENDER, FULL RANGE OF MOTION, EXTREMITIES: NONTENDER, FULL RANGE OF MOTION SKIN: COLOR PINK, DRY, NO TURGOR, NO RASH, NO LACERATIONS, NO ABRASIONS, NO CONTUSIONS. LYMPHATIC: DEFERRED Results (Laboratory/Radiology) Laboratory/Radiology Laboratory Tests Test 11/08/24 11:59 11/08/24 13:01 11/08/24 14:01 11/08/24 16:55 White Blood Count 11.9 K/uL (4.8-10.8) H Red Blood Count 4.98 MIL/uL (4.00-5.50) Hemoglobin 13.4 g/dL (12.0-16.0) Hematocrit 39.7 % (36-48) Mean Corpuscular Volume 79.7 fL (79-99) Mean Corpuscular Hemoglobin 26.9 pg (27.0-33.0) L Mean Corpuscular Hemoglobin Concent 33.8 g/dL (32.0-36.0) Red Cell Distribution Width 13.2 % (11.0-15.5) Platelet Count 267 K/uL (130-400) Mean Platelet Volume 10.7 fL (7.5-10.5) H Immature Granulocyte % (Auto) 0.3 % (0-1) Neutrophils (%) (Auto) 79.6 % (40.0-77.0) H Lymphocytes (%) (Auto) 15.0 % (21.0-51.0) L Monocytes (%) (Auto) 4.0 % (3.0-13.0) Eosinophils (%) (Auto) 0.8 % (0.0-8.0) Basophils (%) (Auto) 0.3 % (0.0-5.0) Neutrophils # (Auto) 9.5 K/uL (1.8-7.7) H Lymphocytes # (Auto) 1.8 K/uL (1.0-4.8) Monocytes # (Auto) 0.5 K/uL (0.1-1.0) Eosinophils # (Auto) 0.09 K/uL (0.00-0.70) Basophils # (Auto) 0.03 K/uL (0.00-0.20) Absolute Immature Granulocyte (auto 0.03 K/uL (0-1) Nucleated Red Blood Cells 0.0 % (0.0-0.19) Sodium Level 128 mmol/L (136-145) L Potassium Level 4.0 mmol/L (3.5-5.1) Chloride Level 91 mmol/L (101-111) L Carbon Dioxide Level 29 mmol/L (21-32) Blood Urea Nitrogen 13 mg/dL (7-18) Creatinine 1.3 mg/dL (0.5-1.0) H Glomerular Filtration Rate Calc 47 mL/min (>90) Random Glucose 656 mg/dL (70-105) *H Total Calcium 9.0 mg/dL (8.5-10.1) Troponin I High Sensitivity 23 ng/L (4-50) Lipase 39 U/L (16-77) Urine Color COLORLESS (YELLOW) Urine Appearance CLEAR (CLEAR) Urine pH 6.0 (5.0-8.0) Urine Specific [place] 1.032 (1.001-1.031) Urine Protein NEGATIVE mg/dL (NEGATIVE) Urine Glucose (UA) >=1000 mg/dL (NEGATIVE) H Urine Ketones NEGATIVE mg/dL (NEGATIVE) Urine Occult Blood NEGATIVE (NEGATIVE) Urine Nitrate NEGATIVE (NEGATIVE) Urine Bilirubin NEGATIVE mg/dL (NEGATIVE) Urine Urobilinogen 0.2 mg/dL (0.2-1.0) Urine Leukocyte Esterase NEGATIVE [place]/uL Urine RBC 0-1 /HPF (0-1) Urine WBC 2-5 /HPF (0-1) H Urine Squamous Epithelial Cells RARE /HPF (0-2) Urine Bacteria None /HPF (None Seen) Blood Gas Specimen Type Arterial Arterial Blood pH 7.425 (7.350-7.450) Arterial Blood Partial Pressure CO2 38 mmHg (32-45) Arterial Blood Partial Pressure O2 70.3 mmHg (83.0-108.0) L Arterial Blood HCO3 24.2 mmol/L (21.0-28.0) Arterial Blood Oxygen Saturation 94.6 % (94.0-98.0) Arterial Blood Base Excess 0.1 mmol/L (-2.0-3.0) Blood Gas Temperature 37.0 CELSIUS (35.5-37.0) Blood Gas Vent Mode RA (ROOM AIR) FiO2 21.0 % Blood Gas Specimen Comment LB,MARIE-CAFETERIA ATTENDANT Whole Blood Glucose 299 MG/DL (70-110) H Labs Reviewed?: Yes ED Course ED Course Orders Procedure Category Date Status Time Cbc With Differential LAB 11/08/24 Complete 11:36 Troponin I High LAB 11/08/24 Complete Sensitivity 11:36 Urinalysis Profile LAB 11/08/24 Complete 11:36 12 Lead Ekg Tracing- EKG 11/08/24 Resulted Technical 11:36 0.9%Nacl 1000ml (Ns PHA 11/08/24 Complete 1000ml) 12:00 Morphine 2mg Syg PHA 11/08/24 Complete (Morphine 2mg Syg) 12:00 Ondansetron 4mg Inj PHA 11/08/24 Complete (Zofran 4mg Inj) 12:00 Lipase LAB 11/08/24 Complete 11:36 Basic Metabolic Panel LAB 11/08/24 Complete 11:36 Arterial Blood Gas RT 11/08/24 Transmitted 13:34 Insulin Regular, PHA 11/08/24 Complete Human 3ml (Humulin R 13:34 Arterial Blood Gas LAB 11/08/24 Complete 14:01 0.9%Nacl 1000ml (Ns PHA 11/08/24 Complete 1000ml) 15:30 Bedside Glucose CPOE 11/08/24 Transmitted Fingerstick 16:52 Current Medications Medications (Trade) Dose Ordered Sig/Kole Route PRN Reason Start Time Stop Time Status Last Admin Dose Admin Insulin Human Regular (humuLIN R 100 UNIT/ML 3ML) 10 unit ONCE STAT IV 11/08/24 13:34 11/08/24 13:37 DC 11/08/24 14:05 Morphine Sulfate (morPHINE 2MG SYG) 2 mg ONCE ONCE IVP 11/08/24 12:00 11/08/24 12:01 DC 11/08/24 15:10 Ondansetron HCl (zoFRAN 4MG INJ) 4 mg ONCE ONCE IVP 11/08/24 12:00 11/08/24 12:01 DC 11/08/24 14:04 Sodium Chloride 1,000 ml @ 0 mls/hr ONCE ONCE IV 11/08/24 12:00 11/08/24 12:01 DC 11/08/24 14:03 Sodium Chloride 1,000 ml @ 0 mls/hr ONCE ONCE IV 11/08/24 15:30 11/08/24 15:31 DC 11/08/24 15:22 Vital Signs Date Time Temp Pulse Resp B/P (MAP) Pulse Ox O2 Delivery O2 Flow Rate FiO2 11/08/24 15:56 97.9 80 18 147/89 97 Room Air* 0 21 11/08/24 11:35 97.9 84 18 153/88 96 Room Air 0 1405/spoke to patient at length regarding clinical findings. She states now that she has not taken her diabetic medications in two months and then when she went to see her doctor yesterday at the [facility], she did not asked him for refills on her medications. I advised her that I would not be keeping her in the hospital, I would get her blood sugar under control and she needed to follow up with them this afternoon or tomorrow for refills on her medications and take as directed.1 1712/repeat blood sugar after2 L normal saline and regular insulin is 299. Patient will be discharged home to follow up with her doctor [facility] for refills on her medications Follow a diabetic diet Medical Decision Making MDM MDM: Differential diagnosis: Gastritis/gastroenteritis/esophageal reflux disease/UTI /electrolyte imbalance Rationale: Tests considered and ordered secondary to shared decision making include: Labs Previous outside records reviewed: Old ER visits. Risk of complication and/or morbidity or mortality of patient management: None Medications-Per medication reconciliation Need for hospitalization: Patient does not meet criteria for hospitalization. None Need for emergency major/minor surgery: No There are no social concerns with this patient. Prescription drug management omeprazole Prescriptions will include symptomatic care Patient's prior external medical records from other ER visits were reviewed by me as indicated. Prior testing and results from previous visits were reviewed. Prior tests were taken into account with medical decision making and resource utilization, independent historian/historians were used to obtain complete medical history. I independently interpreted the test that were performed, results were reviewed by me and considered findings on radiology if ordered. Medical management and examination interpretation discussions were had by me with other qualified healthcare professionals as indicated for the patient's care. DX & DISP Disposition: Discharge Departure Impression: Primary Impression: Uncontrolled diabetes mellitus with hyperglycemia Additional Impressions: Noncompliance with medication regimen, Hyponatremia, Dehydration, Gastritis Condition: Stable Scripts Omeprazole (Omeprazole) 40 Mg Capsule. 1 CAP PO DAILY for 30 Days, #30 CAP 0 Refills Prov: MARIE MANSFIELD CAFETERIA ATTENDANT 11/08/24 Additional Instructions: Follow-up with primary care provider in 1 to 2 days. Take medications as directed here in the emergency room. Okay to continue home medications unless otherwise discussed during your visit in the emergency room today. Return to your nearest emergency room if symptoms worsen or if there is no improvement. Call 911 if you need immediate assistance. Take Tylenol or Motrin o [id number] as needed and if no contraindications are present. Increase oral hydration. A wound culture or urine culture was ordered here in the emergency room department please follow-up with primary care provider and advise them to get repeat ports from our facility. If you had any Marc wrap/splints that were applied here, please do not remove them until you see your primary care or specialty. Follow up with the day [facility] night clinic for refills on your diabetic medications and take them as directed. Follow a diabetic diet. Referrals: REIJ RILEY (PCP) Time of Disposition: 17:15 I have reviewed the case, and I agree with, Diagnosis and Plan MARIE MANSFIELD NP Nov 08, 2024 11:39
--- NOTE | 2024-11-08 12:11 | EKG ---
[facility] Test Date: 2024-11-08 Test Time: 12:05:40 Pat Name: CARMEN BETANCOURT Department: ED Room: Gender: F Legal Associate: [id number] : 1965 Requested By: MARIE MANSFIELD Order Number: [id number] Reading MD: Cullen Caceres Measurements Intervals [place] Rate: 68 P: 25 WA: 131 QRS: -22 QRSD: 92 T: 104 QT: 386 QTc: 410 Interpretive Statements Sinus rhythm Nonspecific T abnormalities, lateral leads Compared to ECG 06/25/2024 11:07:23 T-wave abnormality now present Electronically Signed On 11-08-2024 14:44:09 CDT by Cullen Caceres Please click the below link to view image of tracing.
[2024-11-08 12:13] LABS: IMMATURE GRANULOCYTE ABSOLUTE 0.03 K/uL (0-1); NUCLEATED RED BLOOD CELLS 0.0 % (0.0-0.19); PLATELET COUNT (AUTO) 267 K/uL (130-400); RED BLOOD CELL COUNT(AUTO) 4.98 MIL/uL (4.00-5.50); RED CELL DISTRIBUTION WIDTH 13.2 % (11.0-15.5); WHITE BLOOD COUNT (AUTO) 11.9 K/uL (4.8-10.8)
[2024-11-08 12:35] LABS: CREATININE 1.3 mg/dL (0.5-1.0); GLOMERULAR FILTR. RATE CALC 47.0 mL/min (>90); SODIUM SERUM 128.0 mmol/L (136-145); UREA NITROGEN, BLOOD 13.0 mg/dL (7-18)
--- NOTE | 2024-11-08 13:00 | NUR ---
ASSUMED FCARE AT THIS TIME PT MOVED FROM LOBBY INTO FAST TRACK
[2024-11-08 13:07] LABS: GLUCOSE,RANDOM 656.0 mg/dL (70-105)
[2024-11-08 13:26] LABS: APPEARANCE,URINE CLEAR (CLEAR); GLUCOSE, URINE (UA) >=1000 mg/dL (NEGATIVE); LEUKOCYTE ESTERASE ,URINE NEGATIVE Leu/uL (NEGATIVE); NITRATE,URINE NEGATIVE (NEGATIVE); OCCULT BLOOD,URINE NEGATIVE (NEGATIVE)
[2024-11-08 13:27] LABS: ADD UA MICROSCOPIC YES
[2024-11-08 13:31] LABS: SQUAMOUS EPITHELIAL CELL,UR RARE /HPF (0-2)
[2024-11-08] MEDS: 0.9%NACL 1000ML 1,000 ML IV ONE ×2 (14:03→15:22)
[2024-11-08 14:04] LABS: ABG BASE EXCESS 0.1 mmol/L (-2.0-3.0); ABG HCO3 24.2 mmol/L (21.0-28.0); ABG OXYGEN SATURATION 94.6 % (94.0-98.0); ABG PCO2 38 mmHg (32-45); ABG PH 7.425 (7.350-7.450); PO2, ARTERIAL BG 70.3 mmHg (83.0-108.0); TEMPERATURE, CELSIUS BG 37.0 CELSIUS (35.5-37.0); VENT MODE, BG RA (ROOM AIR)
[2024-11-08] MEDS ORDERED: OMEP40CA21 PO (17:17)
[2024-11-08 17:27] VITALS: BP 141/83; PULSE 80; RESP 18; TEMP 97.9; O2SAT 97
== END 2024-11-08 17:33 | disposition home or self-care (01) ==
LOC: EDH 11:31
DX: K29.70 Gastritis, unspecified, without bleeding (principal); E86.0 Dehydration; E87.1 Hypo-osmolality and hyponatremia; E11.65 Type 2 diabetes mellitus with hyperglycemia; I10 Essential (primary) hypertension; Z79.899 Other long term (current) drug therapy; Z87.442 Personal history of urinary calculi; Z91.148 Patient's other noncompliance with medication regimen for other reason
CPT/HCPCS: 99284; 96374; 96361; 96375; 84484; 80048; 82803; 83690; 85025; 82948; 81001; 36415; 93005; 36600; J1815; J2270; J7030 ×2; J2405

== ENCOUNTER → 2024-11-27 | Outpatient (CLI) | payer MEDICAID ==
[~2024-11-27] MED LIST changes: +OMEP40CA21 PO
--- NOTE | 2024-11-27 15:53 | HMCIMG ---
Comparison: May 07, 2023 Findings: There is no acute fracture or dislocation. There are no erosive changes seen. There are degenerative changes manifested by endplate osteophytes at multiple vertebral body levels. impression: Moderate degenerative changes of the spine. /[place]
== END | disposition home or self-care (01) ==
LOC: RAH 08:56
PROVIDERS: ATTEND Pain Medicine Interventional Pain Medicine
DX: M47.816 Spondylosis without myelopathy or radiculopathy, lumbar region (principal); M54.50 Low back pain, unspecified; M25.78 Osteophyte, vertebrae
CPT/HCPCS: 72100